=== PATIENT | female | born 1940 | race Two or more races ===

== ENCOUNTER 2020-11-19 10:48 | Emergency (ER) | payer OTHER ==
[~2020-11-19] VITALS: Ht 147.3 cm; Wt 49.9 kg
[2020-11-19] MEDS ORDERED: SIMVASTATIN5 MG (11:07)
[2020-11-19] MEDS ORDERED: ALENDRONATE SOD70 MG (11:08)
[2020-11-19] MEDS ORDERED: MECLIZINE HCL25 MG PO (13:53)
== END 2020-11-19 14:01 | disposition home or self-care (01) ==
LOC: ER 10:48 → EDBD 11:20 → ER 11:20
DX: R42 Dizziness and giddiness (principal)